=== PATIENT | female | born 1950 | race Caucasian/White ===

== ENCOUNTER 2020-11-01 12:48 | Outpatient (RCR) | payer MEDICARE, SELFPAY ==
--- NOTE | 2020-11-01 14:43 | PTOPEVAL ---
Thank you for referring Mary Zuleta to [facility].? The patient is scheduled to be seen for therapy? ____x/week for ___ weeks. Please review, sign, date and return this plan of care ADITHYA. I agree with and certify that the following plan of care is medically necessary. Referring Physician Date Admitting Provider: Attending Provider: Leesa Mireles Referring Provider: [facility] Outpatient Evaluation Start: 11/01/20 12:59 Freq: Status: Active Protocol: Document 11/01/20 12:59 [facility] (Rec: 11/01/20 14:03 [facility] [id number]) Therapy Assessment Status Assessment Status Assessment Status Evaluation Evaluation Information Problem Diagnosis R ankle, post tib and perineal tendonitis Onset 10/25/20 Additional Evaluation Detail LEFS = Subjective Information patient recalls no specific Query Text:As Reported By Patient/ injury to the R ankle. patient Family reports years ago she was stepped on by a large hog. she reports she no rolling or injury recently that she can recall. she reports she has increased pain in the R ankle with squats, walking, and standing. she is wearing a brace for about 2-3 weeks. she reports pain along the outside of her R ankle. she reports she is unsure if she had an x-ray of the ankle. she reports she did have any injection to the lateral ankle about 1 month ago. she reports the injection did not help. Prior Level of Function Comments Additional Prior Level of Function patient reports she has been Comments increasing limited for about 4 months or more. she reports she prior to then she had some discomfort but no pain daily. Pain Assessment Timing of Pain Assessment Timing of Pain Assessment Assessment Pain Scale Pain Scale Used Numeric (1 - 10) Self Report Pain Assessment Right Lateral Ankle(s) Reported Pain Level 4 Lowest Pain Intensity 2 Greatest Pain Intensity 7 Pain Score Pain Score 4: Self Report Interventions Used Interventions Used By Clinicians Activity or ADL's,Education, Exercise Lower Extremity Range of Motion Ankle/Foot Range of Motion R
== END 2020-11-30 10:25 | disposition home or self-care (01) ==
LOC: CHSPT 12:48
DX: M76.821 Posterior tibial tendinitis, right leg (principal); M76.71 Peroneal tendinitis, right leg
CPT/HCPCS: 97110; 97112; 97140; 97161